=== PATIENT | male | born 1980 | race Caucasian/White ===

== ENCOUNTER 2019-03-09 17:52 | Emergency (ER) | payer MEDICAID ==
[~2019-03-09] VITALS: Ht 185.4 cm; Wt 77.5 kg
[2019-03-09 20:36] VITALS: BP 101/65
== END 2019-03-09 21:50 | disposition home or self-care (01) ==
LOC: ED 21:10
DX: F10.220 Alcohol dependence with intoxication, uncomplicated (principal); F17.200 Nicotine dependence, unspecified, uncomplicated
CPT/HCPCS: 36415; 80048; 80307; 82040; 85025; 93005; 99284